=== PATIENT | female | born 1955 | race Caucasian/White ===

== ENCOUNTER 2018-07-18 14:56 | Emergency (ER) | payer BC, OTHER ==
--- NOTE | 2018-07-18 15:52 | EDPHY ---
H & P Time Seen by Provider: 07/18/18 15:51 HPI/ROS: Chief complaint. Syncope versus seizure HPI. 8-year-old female had a syncopal or seizure episode just prior to arrival. She and her family had just finished a bike ride. She was feeling well during the bike ride. Afterwards she started to feel little bit lightheaded while they were low loading the bikes on the car. She fell against her who lowered her to the ground. He notes that she was having her arms clenched and was shaking somewhat. Shaking lasted about 12 sec. She was not confused afterwards. She did however bite her lip. 3 weeks ago she also felt lightheaded but did not have any type of passing out episode. She has no seizure disorder history. She had no chest pain or shortness of breath today no abdominal pain. She was feeling well before and during the bike ride. ROS 10 systems were reviewed and negative with the exception of the elements mentioned in the history of present illness Past Medical/Surgical History: Foot surgery, skin cancer, ovarian cyst Social History: , nonsmoker, no alcohol Smoking Status: Never smoked Physical Exam: General Appearance: Alert pleasant well-developed female mild distress vital signs are stable Eyes: Pupils equal and round no pallor or injection. ENT, no oral pharyngeal or dental trauma. 1 mm laceration upper lip that is not bleeding now Respiratory: There are no retractions, lungs are clear to auscultation. Cardiovascular: Regular rate and rhythm. Gastrointestinal: Abdomen is soft and nontender, no masses, bowel sounds normal. Neurological: Awake and alert, sensory and motor exams grossly normal. Speech is normal. Cranial nerves are intact. There is no pronator drift. Finger-to- nose and vezc-[id number]-hbds are intact bilaterally Skin: Warm and dry, no rashes. Musculoskeletal: Neck is supple nontender. Extremities symmetrical, full range of motion. Psychiatric: Patient is oriented X 3, there is no agitation. Constitutional: Initial Vital Signs Temperature (C) 36.9 C 07/18/18 15:03 Heart Rate 77 07/18/18 15:03 Respiratory Rate 16 07/18/18 15:03 Blood Pressure 143/88 H 07/18/18 15:03 O2 Sat (%) 97 07/18/18 15:03 O2 Delivery Mode Room Air Allergies/Adverse Reactions: No Known Allergies Allergy (Unverified 07/18/18 15:02) Home Medications: Medication Instructions Recorded NK [No Known Home Meds] 07/18/18 Medical Decision Making - Diagnostics EKG Interpretation: EKG interpreted by me shows normal sinus rhythm normal interval and axis. QRS is normal there is no significant ST elevation or depression. No arrhythmia. The rate is 70 Imaging Results: Imaging Impressions Head CT 07/18/18 16:17 Impression: 1. Nonspecific indeterminate punctate calcification posterior inferior edison and along the superior margin of the third ventricle without definitive associated mass. No additional intracranial abnormality seen. Consider further evaluation with MRI as clinically directed. Findings discussed with Memo Germain M.D. at 17:23 hour, 07/18/2018. Noncontrast head CT shows punctate calcification posterior inferior edison and also along the superior margin of the 3rd ventricle. No mass effect. No intracranial bleeding. Procedures: IV normal saline, monitor ED Course/Re-evaluation: Re-evaluation 6:00 p.m.--patient is stable and without complaints. Alert and conversational Patient and family and I discussed imaging lab EKG findings. We discussed treatment plan including recommendation for follow-up and further evaluation. 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 She would prefer to have her MRI and further evaluation there. We discussed no driving and other dangerous activity until cleared by Neurology. She expresses understanding and agreement Differential Diagnosis: It sounds almost as the patient has syncopal episode and then had some twitching. It only lasted 12 sec. She was not confused afterwards. However she did bite her lip. She does have some calcifications in the brain of on clear significance and time. I have considered syncope verses - Data Points Laboratory Results: Laboratory Results 07/18/18 16:15 07/18/18 16:15 07/18/18 07/18/18 07/18/18 16:21 16:15 16:15 WBC 6.42 10^3/uL 10^3/uL (3.80-9.50) RBC 4.01 10^6/uL L 10^6/uL (4.18-5.33) Hgb 12.7 g/dL g/dL (12.6-16.3) Hct 37.6 % L % (38.0-47.0) MCV 93.8 fL fL (81.5-99.8) MCH 31.7 pg pg (27.9-34.1) MCHC 33.8 g/dL g/dL (32.4-36.7) RDW 12.5 % % (11.5-15.2) Plt Count 345 10^3/uL 10^3/uL (150-400) MPV 8.6 fL L fL (8.7-11.7) Neut % (Auto) 67.3 % % (39.3-74.2) Lymph % (Auto) 23.7 % % (15.0-45.0) [place] % (Auto) 7.0 % % (4.5-13.0) Eos % (Auto) 1.2 % % (0.6-7.6) Baso % (Auto) 0.5 % % (0.3-1.7) Nucleat RBC Rel Count 0.0 % % (0.0-0.2) Absolute Neuts (auto) 4.32 10^3/uL 10^3/uL (1.70-6.50) Absolute Lymphs (auto) 1.52 10^3/uL 10^3/uL (1.00-3.00) Absolute Monos (auto) 0.45 10^3/uL 10^3/uL (0.30-0.80) Absolute Eos (auto) 0.08 10^3/uL 10^3/uL (0.03-0.40) Absolute Basos (auto) 0.03 10^3/uL 10^3/uL (0.02-0.10) Absolute Nucleated RBC 0.00 10^3/uL 10^3/uL (0-0.01) Immature Gran % 0.3 % % (0.0-1.1) Immature Gran # 0.02 10^3/uL 10^3/uL (0.00-0.10) Sodium 137 mEq/L mEq/L (135-145) Potassium 3.8 mEq/L mEq/L (3.5-5.2) Chloride 104 mEq/L mEq/L (97-110) Carbon Dioxide 24 mEq/l mEq/l (22-31) Anion Gap 9 mEq/L mEq/L (6-14) BUN 12 mg/dL mg/dL (7-23) Creatinine 0.6 mg/dL mg/dL (0.6-1.0) Estimated GFR > 60 Glucose 114 mg/dL H mg/dL (70-100) Calcium 9.4 mg/dL mg/dL (8.5-10.4) POC Troponin I 0.01 ng/mL ng/mL (0.00-0.08) Medications Given: Discontinued Medications Sodium Chloride (Ns) 1,000 mls @ 0 mls/hr IV ONCE ONE; Wide Open PRN Reason: Protocol Stop: 07/18/18 16:18 Last Admin: 07/18/18 16:40 Dose: 1,000 mls Point of Care Test Results: Chemistry 07/18/18 16:21 POC Troponin I 0.01 ng/mL ng/mL (0.00-0.08) Departure - Departure Disposition: Home, Routine, Self-Care Clinical Impression: Syncope and collapse Condition: Good Instructions: Syncope (ED) Additional Instructions: Easy activity. Drink plenty of fluids and get good rest No driving or other dangerous activity until further evaluation by Neurology . Return for another passing out episode, chest pain, seizure. Follow-up with your colleagues at [facility] upon return home to [facility] for MRI and EEG as well as further evaluation Referrals: NONE *PRIMARY CARE P,. [Primary Care Provider] - As per Instructions
[2018-07-18] MEDS ORDERED: NS 1,000 ML IV ONE (16:17)
[2018-07-18 16:30] LABS: PLATELET COUNT 345 10^3/uL (150-400)
[2018-07-18 18:34] VITALS: BP 147/96
--- NOTE | 2018-07-18 18:44 | CPEKG ---
Test Reason : OPEN Blood Pressure : / mmHG Vent. Rate : 070 BPM Atrial Rate : 070 BPM P-R Int : 152 ms QRS Dur : 099 ms QT Int : 406 ms P-R-T Axes : 039 038 007 degrees QTc Int : 439 ms Sinus rhythm Confirmed by Memo Germain ([id number]) on 07/18/2018 6:44:32 PM Referred By: PHYSICIAN ED Confirmed By:Memo Germain
== END 2018-07-18 18:34 | disposition home or self-care (01) ==
DX: R55 Syncope and collapse (principal); E86.9 Volume depletion, unspecified
CPT/HCPCS: 84484-ER